=== PATIENT | female | born 1945 | race Two or more races ===

== ENCOUNTER → 2016-08-22 | Outpatient (CLI) | payer OTHER ==
--- NOTE | 2016-08-22 13:40 | KCIC ---
PROCEDURE Radiographic arthritic series HISTORY Polyarthralgia. COMPARISON None FINDINGS AP pelvis No evidence of acute fracture. Joint spaces are intact. No evidence of bone destruction. Surgical clips seen the left pubic region. Lumbar spondylosis partially. Single-view lateral flexion cervical spine There is visualization of the see 1 through C5 vertebrae on the lateral view, with the lower vertebrae more obscured by soft tissue. Cervical spondylosis identified particularly at C4-C5, C5-C6 and C6-C7. Visualized prevertebral soft tissues do not appear swollen. Bilateral single view standing AP knee Degenerative changes at medial and lateral compartments of the left knee with marginal osteophytes and vacuum. Right knee is grossly intact on single view. Single view right hand Severe primary osteoarthritis at the 1st carpometacarpal joint. There appears to be rotary subluxation of the scaphoid suggesting scapholunate dissociation. There are mild osteoarthritic changes at the interphalangeal joints. 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 Erosive changes at the adjacent scaphoid and lunate as well as the distal radial articular surface. Severe radiocarpal osteoarthritis. Chronic appearing defect at the base of the 1st metacarpal with a small or absent trapezium bone, either compatible with prior surgery or chronic erosion. There is widening of the space between the scaphoid and the trapezoid bone. Widening of the space between the distal radius and ulna suggesting dissociation. Suture anchor identified at the distal 1st metacarpal. Mild osteoarthritic changes at the interphalangeal joints. Single-view oblique left foot Mild degenerative changes with subchondral cysts at the calcaneocuboid joint. No aggressive bone destruction. Single-view oblique right foot No evidence of acute fracture. Joint spaces and alignment appear intact. IMPRESSION 1. Cervical spondylosis. 2. Primary osteoarthritis of both hands. 3. 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 4. Defects at the 1st carpometacarpal joint could be postoperative or related to chronic erosion. 5. Primary osteoarthritis of the left knee 6. Distal radioulnar joint separation at the left wrist. Electronically signed by: Brad Barry MD (Aug 22, 2016 13:38:49)
== END | disposition home or self-care (01) ==
LOC: KCIC 10:06
PROVIDERS: ATTEND Internal Medicine Rheumatology
DX: M25.572 Pain in left ankle and joints of left foot (principal); M25.571 Pain in right ankle and joints of right foot; M47.892 Other spondylosis, cervical region; M17.12 Unilateral primary osteoarthritis, left knee; M79.642 Pain in left hand; M79.641 Pain in right hand
CPT/HCPCS: 72020; 72170; 73120; 73565; 73620